=== PATIENT | male | born 1970 | race Native Hawaiian/Other Pacific Islander ===

== ENCOUNTER 2017-01-14 11:44 | Emergency (ER) | payer OTHER ==
[~2017-01-14] VITALS: Ht 167.6 cm; Wt 121.1 kg
[2017-01-14] MEDS ORDERED: TRICOR48 MG PO (12:45)
[2017-01-14] MEDS ORDERED: TRULICITY0.75 MG/0. SC (12:46)
[2017-01-14] MEDS ORDERED: BENA5CAP4 PO (12:46)
[2017-01-14] MEDS ORDERED: METFTAB PO (12:47)
[2017-01-14] MEDS ORDERED: TRAZ50TA36 PO (12:47)
[2017-01-14] MEDS ORDERED: CELEXA40 MG PO (12:48)
[2017-01-14 13:03] LABS: SODIUM 134 mmol/L (136-145)
[2017-01-14 13:55] VITALS: BP 156/84; TEMP 97.8
== END 2017-01-14 13:55 | disposition home or self-care (01) ==
LOC: ED 11:44
PROVIDERS: Emergency Medicine
DX: E11.65 Type 2 diabetes mellitus with hyperglycemia (principal)
CPT/HCPCS: 36415; 80048; 81000; 82962; 83036; 99283

== ENCOUNTER 2018-02-22 09:42 | Day surgery (SDC) | payer OTHER ==
[~2018-02-22 09:42] MED LIST: BENA5CAP4 PO; CELEXA40 MG PO; METFTAB PO; TRAZ50TA36 PO; TRICOR48 MG PO; TRULICITY0.75 MG/0. SC
[2018-02-22 10:43] LABS: PLATELET COUNT 179 K/uL (142-355)
[2018-02-22 11:00] LABS: POTASSIUM 3.8 mmol/L (3.6-5.2)
== END 2018-02-22 15:10 | disposition home or self-care (01) ==
LOC: OR 09:42
PROVIDERS: Student in an Organized Health Care Education/Training Program
PROC: 0VTTXZZ Resection of Prepuce, External Approach (ICD-10-PCS; principal; 2018-02-22)
DX: N48.6 Induration penis plastica (principal); N47.1 Phimosis
CPT/HCPCS: 80053; 85027; J0690; J2250; J2704; J3010; J3490

== ENCOUNTER 2018-08-10 13:05 | Outpatient (CLI) | payer OTHER | END 2018-08-10 23:02 | disposition home or self-care (01) | LOC: RAD 13:05 | DX: M54.17 Radiculopathy, lumbosacral region (principal) ==

== ENCOUNTER 2019-08-21 23:05 | Emergency (ER) | payer OTHER ==
[~2019-08-21] VITALS: Ht 167.6 cm; Wt 99.8 kg
[2019-08-22 00:38] VITALS: BP 129/60; TEMP 97.3
== END 2019-08-22 00:40 | disposition home or self-care (01) ==
LOC: ED 23:05
DX: M16.12 Unilateral primary osteoarthritis, left hip (principal)
CPT/HCPCS: 96372; 99283; J1885

== ENCOUNTER 2019-09-04 17:05 | Inpatient (IN) | payer OTHER ==
[~2019-09-04] VITALS: Ht 167.6 cm; Wt 93.6 kg
[2019-09-04 19:05] LABS: PLATELET COUNT 341 K/uL (142-355)
[2019-09-04 19:22] LABS: SODIUM 132 mmol/L (136-145)
[2019-09-04 19:38] LABS: PARTIAL THROMBOPLASTIN TIME 28.9 SECONDS (24.5-33.6)
[2019-09-04 19:46] VITALS: BP 148/93; TEMP 98.2; Ht 167.6 cm; Wt 93.6 kg
[2019-09-04 20:00] VITALS: BP 139/95; TEMP 100.4
[2019-09-05] VITALS: BP 146/97; TEMP 100
[2019-09-05 04:00] VITALS: BP 135/88; TEMP 101.1
[2019-09-05 08:00] VITALS: BP 136/92; TEMP 98.7
[2019-09-05 08:04] LABS: PLATELET COUNT 263 K/uL (142-355)
[2019-09-05 12:00] VITALS: BP 132/92; TEMP 99
[2019-09-05 16:00] VITALS: BP 129/80; TEMP 101.2
[2019-09-05 20:00] VITALS: BP 147/89; TEMP 101.4
[2019-09-06] VITALS (7 sets, daily range): BP systolic 117–148; BP diastolic 74–96; TEMP 97.6–99.9
[2019-09-06 04:40] LABS: PLATELET COUNT 280 K/uL (142-355)
[2019-09-06 04:55] LABS: POTASSIUM 4.1 mmol/L (3.6-5.2)
[2019-09-07 04:00] VITALS: BP 103/63; TEMP 98.4
[2019-09-07 05:07] LABS: PLATELET COUNT 227 K/uL (142-355)
[2019-09-07 05:32] LABS: POTASSIUM 4.1 mmol/L (3.6-5.2)
[2019-09-07 08:00] VITALS: BP 109/69; TEMP 97.9
[2019-09-07 12:00] VITALS: BP 135/83; TEMP 98.5
[2019-09-07 16:00] VITALS: BP 135/82; TEMP 101.4
[2019-09-07 20:00] VITALS: BP 122/77; TEMP 98.3
[2019-09-08 00:29] VITALS: BP 116/76; TEMP 99
[2019-09-08 04:00] VITALS: BP 123/75; TEMP 99.3
[2019-09-08 08:00] VITALS: BP 110/50; TEMP 98
[2019-09-08 12:00] VITALS: BP 131/87; TEMP 97.2
[2019-09-08 14:32] LABS: POTASSIUM 3.7 mmol/L (3.6-5.2)
[2019-09-08 14:36] LABS: PLATELET COUNT 287 K/uL (142-355)
[2019-09-08 16:00] VITALS: BP 131/87; TEMP 97.2
[2019-09-08 20:00] VITALS: BP 122/88; TEMP 99.1
[2019-09-09] VITALS: BP 126/79; TEMP 98.4
[2019-09-09 04:00] VITALS: BP 122/77; TEMP 98.9
[2019-09-09 07:59] VITALS: BP 100/68; TEMP 97.9
[2019-09-09 09:05] LABS: POTASSIUM 4.1 mmol/L (3.6-5.2)
[2019-09-09 10:04] LABS: PLATELET COUNT 272 K/uL (142-355)
[2019-09-09 11:37] VITALS: BP 138/86; TEMP 98.1
[2019-09-09 16:24] VITALS: BP 122/82; TEMP 98.8
[2019-09-09 20:00] VITALS: BP 123/78; TEMP 98.7
[2019-09-10] VITALS (7 sets, daily range): BP systolic 109–133; BP diastolic 70–86; TEMP 98–99.2
[2019-09-10 05:12] LABS: PLATELET COUNT 245 K/uL (142-355)
[2019-09-11 04:00] VITALS: BP 122/76; TEMP 98.7
[2019-09-11 05:48] LABS: PLATELET COUNT 275 K/uL (142-355)
[2019-09-11 06:03] LABS: POTASSIUM 3.8 mmol/L (3.6-5.2)
[2019-09-11 08:21] VITALS: BP 141/90; TEMP 97.9
[2019-09-11 12:03] VITALS: BP 126/84; TEMP 98.3
[2019-09-11 16:05] VITALS: BP 126/81; TEMP 98
[2019-09-11 20:00] VITALS: BP 135/90; TEMP 98.5
[2019-09-12] VITALS: BP 133/79; TEMP 98.5
[2019-09-12 03:59] VITALS: BP 148/92; TEMP 99
[2019-09-12 06:01] LABS: PLATELET COUNT 190 K/uL (142-355)
[2019-09-12 08:00] VITALS: BP 140/98; TEMP 98
[2019-09-12 12:00] VITALS: BP 122/86; TEMP 97.8
[2019-09-12 16:00] VITALS: BP 132/96; TEMP 97.7
[2019-09-12 20:03] VITALS: BP 125/87; TEMP 98.5
[2019-09-13] VITALS (7 sets, daily range): BP systolic 123–11299; BP diastolic 8–92; TEMP 97.9–99.4
[2019-09-13 05:32] LABS: PLATELET COUNT 256 K/uL (142-355)
[2019-09-13 05:34] LABS: POTASSIUM 3.5 mmol/L (3.6-5.2)
[2019-09-14 04:00] VITALS: BP 137/86; TEMP 98.8
[2019-09-14 08:00] VITALS: BP 127/87; TEMP 98.4
[2019-09-14 12:00] VITALS: BP 116/72; TEMP 99.2
[2019-09-14 16:00] VITALS: BP 124/84; TEMP 99.5
[2019-09-14 20:00] VITALS: BP 141/88; TEMP 98.6
[2019-09-15] VITALS (7 sets, daily range): BP systolic 118–141; BP diastolic 69–97; TEMP 97.4–99.6
[2019-09-15 14:32] LABS: PLATELET COUNT 306 K/uL (142-355)
[2019-09-15 15:07] LABS: POTASSIUM 3.5 mmol/L (3.6-5.2)
[2019-09-16 04:00] VITALS: BP 122/71; TEMP 98.6
[2019-09-16 05:47] LABS: PLATELET COUNT 266 K/uL (142-355)
[2019-09-16 05:48] LABS: POTASSIUM 3.4 mmol/L (3.6-5.2)
[2019-09-16 08:00] VITALS: BP 139/95; TEMP 99.1
[2019-09-16 12:00] VITALS: BP 127/85; TEMP 99.4
[2019-09-16 16:00] VITALS: BP 140/93; TEMP 98.3
[2019-09-16 19:52] VITALS: BP 136/91; TEMP 98.2
[2019-09-16 23:58] VITALS: BP 118/67; TEMP 98.2
[2019-09-17 04:00] VITALS: BP 134/93; TEMP 99.4
[2019-09-17 04:11] LABS: PLATELET COUNT 295 K/uL (142-355)
[2019-09-17 04:26] LABS: POTASSIUM 3.9 mmol/L (3.6-5.2)
[2019-09-17 08:00] VITALS: BP 140/97; TEMP 98.9
[2019-09-17 12:00] VITALS: BP 124/75; TEMP 99.3
[2019-09-17 16:00] VITALS: BP 133/93; TEMP 98
[2019-09-17 20:23] VITALS: BP 129/81; TEMP 99.9
[2019-09-18] VITALS: BP 107/70; TEMP 99.3
[2019-09-18 04:00] VITALS: BP 131/81; TEMP 100.2
[2019-09-18 05:06] LABS: PLATELET COUNT 275 K/uL (142-355)
[2019-09-18 05:47] LABS: POTASSIUM 3.6 mmol/L (3.6-5.2)
[2019-09-18 08:16] VITALS: BP 105/66; TEMP 98.1
[2019-09-18 12:08] VITALS: BP 128/85; TEMP 97.8
[2019-09-18 16:04] VITALS: BP 140/89; TEMP 98.5
[2019-09-18 20:00] VITALS: BP 134/69; TEMP 99.3
[2019-09-19] VITALS: BP 123/67; TEMP 98.4
[2019-09-19 04:00] VITALS: BP 107/67; TEMP 98.7
[2019-09-19 08:00] VITALS: BP 140/88; TEMP 98.3
[2019-09-19 12:00] VITALS: BP 148/86; TEMP 97.8
[2019-09-19 16:00] VITALS: BP 120/62; TEMP 98.5
[2019-09-19 20:00] VITALS: BP 120/62; TEMP 98.5
[2019-09-20] VITALS: BP 102/67; TEMP 98.9
[2019-09-20 04:00] VITALS: BP 130/87; TEMP 98.7
[2019-09-20 08:00] VITALS: BP 129/88; TEMP 98.6
[2019-09-20 12:00] VITALS: BP 125/83; TEMP 98.7
[2019-09-20 16:00] VITALS: BP 117/65; TEMP 98.5
[2019-09-20 20:08] VITALS: BP 102/63; TEMP 99.2
[2019-09-21] VITALS: BP 122/67; TEMP 98.7
[2019-09-21 04:00] VITALS: BP 133/90; TEMP 98.6
[2019-09-21 08:00] VITALS: BP 132/90; TEMP 98.8
[2019-09-21 12:00] VITALS: BP 132/86; TEMP 97.5
[2019-09-21 12:17] LABS: PLATELET COUNT 318 K/uL (142-355)
== END 2019-09-21 11:45 | disposition swing bed (61) | DRG 989 ==
LOC: MED/SURG 17:05
PROVIDERS: ADMIT Family Medicine
PROC: 0H99XZZ Drainage of Perineum Skin, External Approach (ICD-10-PCS; principal; 2019-09-03)
PROC: 02HV33Z Insertion of Infusion Device into Superior Vena Cava, Percutaneous Approach (ICD-10-PCS; 2019-09-19)
DX: K65.1 Peritoneal abscess (principal); E78.49 Other hyperlipidemia; E66.8 Other obesity; I10 Essential (primary) hypertension; D50.0 Iron deficiency anemia secondary to blood loss (chronic); R19.5 Other fecal abnormalities; R10.32 Left lower quadrant pain; E11.65 Type 2 diabetes mellitus with hyperglycemia; B95.3 Streptococcus pneumoniae as the cause of diseases classified elsewhere; F32.89 Other specified depressive episodes
CPT/HCPCS: 36415; 36571; 80048; 80053; 81000; 82248; 82550; 82607; 82728; 83540; 83550; 83605; 83735; 84100; 84436; 84484; 85027; 85044; 85610; 85730; 86850; 86900; 86901; 86922; 87040; 87070; 87076; 87077; 87101; 87185; 87186; 87205; 87490; 87590; 93005; C1729; C1751; J0696; J0744; J1815; J1940; J1956; J2060; J3475; J3490; Q9963

== ENCOUNTER 2019-09-21 11:45 | Inpatient (IN) | payer OTHER ==
[~2019-09-21] VITALS: Ht 167.6 cm; Wt 94.4 kg
[2019-09-21 15:40] VITALS: BP 132/86; TEMP 97.5; Ht 167.6 cm; Wt 94.4 kg
[2019-09-21 19:59] VITALS: BP 135/85; TEMP 97.7
[2019-09-22 09:09] VITALS: BP 141/98; TEMP 97.6
[2019-09-22 20:00] VITALS: BP 126/83; TEMP 98.8
[2019-09-23 20:00] VITALS: BP 127/77; TEMP 97.1
[2019-09-24 14:06] LABS: PLATELET COUNT 224 K/uL (142-355)
[2019-09-24 14:17] LABS: POTASSIUM 4.2 mmol/L (3.6-5.2)
[2019-09-24 20:00] VITALS: BP 119/75; TEMP 99.2
[2019-09-25 08:05] VITALS: BP 120/82; TEMP 98.7
[2019-09-25 20:21] VITALS: BP 130/66; TEMP 98.8
[2019-09-26 09:06] VITALS: BP 137/95; TEMP 98.3
[2019-09-26 20:00] VITALS: BP 124/76; TEMP 98.5
[2019-09-27 08:57] VITALS: BP 109/52; TEMP 97.8
[2019-09-27 11:15] LABS: PARTIAL THROMBOPLASTIN TIME 25.4 SECONDS (24.5-33.6)
[2019-09-28 08:22] VITALS: BP 146/87; TEMP 98.5
[2019-09-28 20:00] VITALS: BP 122/81; TEMP 98.9
[2019-09-29 05:32] LABS: PLATELET COUNT 185 K/uL (142-355)
[2019-09-29] MEDS ORDERED: NEURONTIN 100M100 MG PO (12:59)
== END 2019-09-29 16:40 | disposition home or self-care (01) | DRG 373 ==
LOC: MED/SURG 11:45
PROVIDERS: ADMIT Family Medicine
DX: K65.1 Peritoneal abscess (principal); E78.49 Other hyperlipidemia; E66.8 Other obesity; I10 Essential (primary) hypertension; D50.0 Iron deficiency anemia secondary to blood loss (chronic); R19.5 Other fecal abnormalities; R10.32 Left lower quadrant pain; E11.65 Type 2 diabetes mellitus with hyperglycemia; F32.89 Other specified depressive episodes
CPT/HCPCS: 36415; 80053; 81000; 85027; 85610; 85730; J1200; J1642

== ENCOUNTER 2019-09-27 09:12 | Outpatient (CLI) | payer OTHER | END 2019-09-27 20:20 | disposition home or self-care (01) | LOC: CT 09:12 | DX: N15.1 Renal and perinephric abscess (principal) | CPT/HCPCS: Q9963 ==

== ENCOUNTER 2019-10-17 21:27 | Emergency (ER) | payer OTHER ==
[~2019-10-17] VITALS: Ht 167.6 cm; Wt 94.3 kg
[~2019-10-17 21:27] MED LIST changes: +NEURONTIN 100M100 MG PO
[2019-10-17 21:44] LABS: PLATELET COUNT 191 K/uL (142-355)
[2019-10-17] MEDS ORDERED: CADUET5 MG/20 MG PO (21:45)
[2019-10-17] MEDS ORDERED: IRON325 MG PO (21:46)
[2019-10-17 22:04] LABS: POTASSIUM 3.7 mmol/L (3.6-5.2)
[2019-10-17 23:53] VITALS: BP 147/89; TEMP 97.8
== END 2019-10-17 23:53 | disposition home or self-care (01) ==
LOC: ED 21:27
PROVIDERS: Emergency Medicine
DX: E86.0 Dehydration (principal)
CPT/HCPCS: 80053; 81000; 84484; 85027; 93005; 96360; 99284

== ENCOUNTER 2019-10-26 09:32 | Outpatient (CLI) | payer OTHER ==
[~2019-10-26 09:32] MED LIST changes: +CADUET5 MG/20 MG PO; +IRON325 MG PO
== END 2019-10-26 20:53 | disposition home or self-care (01) ==
LOC: MRI 09:32
DX: H53.40 Unspecified visual field defects (principal)
CPT/HCPCS: A9576

== ENCOUNTER 2019-11-06 16:13 | Outpatient (CLI) | payer OTHER | END 2019-11-06 19:20 | disposition home or self-care (01) | LOC: RAD 16:13 | DX: M54.2 Cervicalgia (principal); M54.5 Low back pain ==

== ENCOUNTER 2020-02-12 13:28 | Emergency (ER) | payer OTHER ==
[~2020-02-12] VITALS: Ht 167.6 cm; Wt 113.4 kg
[2020-02-12 13:30] VITALS: BP 128/83; TEMP 98.3
== END 2020-02-12 15:04 | disposition home or self-care (01) ==
LOC: ED 13:28
DX: E11.65 Type 2 diabetes mellitus with hyperglycemia (principal); Z79.84 Long term (current) use of oral hypoglycemic drugs
CPT/HCPCS: 82962; 99282

== ENCOUNTER 2021-04-15 18:21 | Observation (INO) | payer OTHER ==
[~2021-04-15] VITALS: Ht 167.6 cm; Wt 110.3 kg
[2021-04-15 20:00] VITALS: BP 147/94; TEMP 98.6
[2021-04-15 21:26] LABS: PLATELET COUNT 144 K/uL (142-355)
[2021-04-15 23:40] LABS: POTASSIUM 4.1 mmol/L (3.6-5.2)
[2021-04-16] VITALS (11 sets, daily range): BP systolic 125–151; BP diastolic 70–94; TEMP 98.1–99.1; Ht 167.6 cm; Wt 110.3 kg
[2021-04-16 05:14] LABS: PLATELET COUNT 138 K/uL (142-355)
[2021-04-16 05:50] LABS: POTASSIUM 4.2 mmol/L (3.6-5.2)
[2021-04-16] MEDS ORDERED: ASPIR-8181 MG PO (23:14)
[2021-04-16] MEDS ORDERED: DIPH25CA90 PO (23:15)
[2021-04-16] MEDS ORDERED: BUSPIRONE15 MG PO (23:16)
[2021-04-16] MEDS ORDERED: CLON0.5T36 PO (23:16)
[2021-04-16] MEDS ORDERED: DIVA500T2 PO (23:18)
[2021-04-16] MEDS ORDERED: APIX1TAB (23:19)
[2021-04-16] MEDS ORDERED: HYDROXYZINE HYD25 MG PO (23:20)
[2021-04-16] MEDS ORDERED: ZIPR20CA PO (23:20)
[2021-04-16] MEDS ORDERED: FURO20TA67 PO (23:21)
[2021-04-16] MEDS ORDERED: MELATONIN FAST10 MG PO (23:22)
[2021-04-16] MEDS ORDERED: NAMZARIC 28-101 CAP PO (23:24)
[2021-04-16] MEDS ORDERED: AMLODIPINE BESYLATE PO (23:24)
[2021-04-16] MEDS ORDERED: PRAZ1CAP16 PO (23:26)
[2021-04-16] MEDS ORDERED: FLUO10CA2 PO (23:27)
[2021-04-16] MEDS ORDERED: ROPI5T PO (23:28)
[2021-04-16] MEDS ORDERED: SEROQUEL100 MG (23:30)
[2021-04-16] MEDS ORDERED: CARB25TA29 PO (23:31)
[2021-04-17] VITALS: BP 117/64; TEMP 98.7
[2021-04-17 04:00] VITALS: BP 102/71; TEMP 98.5
[2021-04-17 08:00] VITALS: BP 134/78; TEMP 98.2
== END 2021-04-17 11:55 | disposition home or self-care (01) ==
LOC: MED/SURG 18:21
PROVIDERS: ADMIT Family Medicine; ATTEND Family Medicine
PROC: 30233K1 Transfusion of Nonautologous Frozen Plasma into Peripheral Vein, Percutaneous Approach (ICD-10-PCS; principal; 2021-04-16)
DX: U07.1 COVID-19 (principal); J12.82 Pneumonia due to coronavirus disease 2019; I10 Essential (primary) hypertension; E11.9 Type 2 diabetes mellitus without complications; E66.8 Other obesity
CPT/HCPCS: 36415; 80053; 82728; 82948; 83735; 84100; 85027; 85379; 86140; 86850; 86900; 86901; 87040; 87070; 87205; 93005; 94667; 94668; 94760; 96365; 96366; 96367; 96372; 96375; 99220; G0378; G0379; J0456; J0696; J1650; J1815; P9017

== ENCOUNTER 2023-06-01 14:17 | Outpatient (CLI) | payer OTHER ==
[~2023-06-01 14:17] MED LIST changes: +AMLODIPINE BESYLATE PO; +APIX1TAB; +ASPIR-8181 MG PO; +BUSPIRONE15 MG PO; +CARB25TA29 PO; +CLON0.5T36 PO; +DIPH25CA90 PO; +DIVA500T2 PO; +FLUO10CA2 PO; +FURO20TA67 PO; +HYDROXYZINE HYD25 MG PO; +MELATONIN FAST10 MG PO; +NAMZARIC 28-101 CAP PO; +PRAZ1CAP16 PO; +ROPI5T PO; +SEROQUEL100 MG; +ZIPR20CA PO
== END 2023-06-01 20:23 | disposition home or self-care (01) ==
LOC: RAD 14:17
PROVIDERS: ATTEND Physician Assistant
DX: M54.6 Pain in thoracic spine (principal); M54.59 Other low back pain